=== PATIENT | female | born 1965 | race Caucasian/White ===

== ENCOUNTER → 2017-01-23 | Outpatient (CLI) | payer BC ==
--- NOTE | 2017-01-23 09:54 | MM ---
Reason for exam: screening (asymptomatic). Last mammogram was performed 1 year and 6 months ago. History: Patient had first child at age 31. Physical Findings: A clinical breast exam by your physician is recommended on an annual basis and results should be correlated with mammographic findings. MG Screening Mammo w CAD Bilateral CC and MLO view(s) were taken. Prior study comparison: July 27, 2015, bilateral MG screening mammo w CAD. May 07, 2012, bilateral digital screening mammo w/CAD. There are scattered fibroglandular densities. There is no discrete abnormality. No significant changes when compared with prior studies. ASSESSMENT: Negative, BI-RAD 1 RECOMMENDATION: Routine screening mammogram of both breasts in 1 year.
== END | disposition home or self-care (01) ==
LOC: RADMAMWWP 08:04
PROVIDERS: ATTEND Obstetrics & Gynecology
DX: Z12.31 Encounter for screening mammogram for malignant neoplasm of breast (principal)

== ENCOUNTER → 2017-03-04 | Outpatient (CLI) | payer BC ==
[2017-03-04 17:06] LABS: Basophils # (A) 0.1 k/uL (0-0.2); Basophils % (A) 1 %; CHCM 33.4; Eosinophils # (A) 0.4 k/uL (0-0.7); Eosinophils % (A) 3 %; HDW 2.36; HGB 13.9 gm/dL (11.4-16.0); Luc # (Auto) 0.21; Luc % (Auto) 2; Lymphocytes # (A) 2.6 k/uL (1.0-4.8); Lymphocytes % (A) 25 %; MCH 31.6 pg (25.0-35.0); MCHC 33.9 g/dL (31.0-37.0); MCV 93.4 fL (80.0-100.0); Mean Platelet Volume 7.8; Monocytes # (A) 0.6 k/uL (0-1.0); Monocytes % (A) 6 %; Neutrophils # (A) 6.5 k/uL (1.3-7.7); Neutrophils % (A) 63 %; RBC 4.39 m/uL (3.80-5.40); WBC 10.3 k/uL (3.8-10.6); WBC (Perox) 10.33
== END | disposition home or self-care (01) ==
LOC: LABPAT 15:33
PROVIDERS: ATTEND Obstetrics & Gynecology
DX: Z01.812 Encounter for preprocedural laboratory examination (principal); N84.0 Polyp of corpus uteri; N92.0 Excessive and frequent menstruation with regular cycle
CPT/HCPCS: 85025

== ENCOUNTER 2017-03-17 05:58 | Day surgery (SDC) | payer BC ==
[2017-03-12 13:58] VITALS: BMI 37.2
--- NOTE | 2017-03-16 15:46 | HP ---
This is a 51 -year-old white female who presented for her annual examination. She was noted to have an enlarged fibroid uterus and an ultrasound was performed. Sonogram revealed the presence of small fibroids, however, also suggested the presence of endometrial polyps. For this reason, we have elected to proceed with hysteroscopy, D&C and polypectomy. The patient did have a NovaSure ablation five years ago but continues to have monthly cycles. Review of systems is otherwise negative. Past medical history is essentially unremarkable. Past surgical history: Tubal ligation 2003, ear surgery 1994, jaw surgery in 1985, NovaSure ablation. ALLERGIES: INCLUDE PENICILLIN TO WHICH REPORTS SWELLING, SUDAFED TO WHICH SHE REPORTS A RASH. SURGICAL TAPE TO WHICH SHE REPORTS A LOCAL REACTION. FAMILY HISTORY: Significant for hyperlipidemia. SOCIAL HISTORY: The patient enjoys social alcohol. She has never been a tobacco smoker. 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 She is . Her husbands name is Marco. Current medications: Multivitamin daily. Reproductive history: The patient has had a tubal ligation, she has had two vaginal deliveries, unremarkable. On examination, this is a pleasant white female, she is 5 foot 3 inches, 217 pounds, BMI 38. HEENT: exam is negative. No thyromegaly. No cervical lymphadenopathy. Good range of motion in the neck. The breasts are bilaterally symmetric to inspection, no skin dimpling, nipple discharge or axillary adenopathy. The abdomen is moderately obese, no organosplenomegaly. No tenderness. No CVA tenderness. Extremities reveals no edema, good range of motion is noted. Chest is clear to auscultation in all villarreal anteriorly and posteriorly. Cardiac exam reveals regular rate and rhythm with no murmur, click or rub. On pelvic exam reveals external genitalia is well estrogenized, no unusual discharge. Cervix is multiparous, nontender, with no bleeding noted. Uterus is 12 to 14 weeks size, irregular in contour, small external fibroids noted. Position is midline. Adnexa are negative bilaterally. No masses or tenderness. Rectal exam reveals FIT negative stool. IMPRESSION: 12 to 14 week size fibroid uterus with endometrial polyps noted sonographically. PLAN: We will proceed with hysteroscopy, D&C at [facility]. All risks of uterine perforation, bleeding, infection, damage to bowel or bladder, cervix or uterus all reviewed. All questions answered. The ACOG pamphlet on this procedure have been given to the patient for her review. SHARON
[~2017-03-17 05:58] MED LIST: DEXAMETHASONE SOD PHOSPHATE 10 MG/ML 1 ML VIAL IV ONE; HYDROmorphone 1 MG/ML 1 ML SYRINGE IVP PRN; LACTATED RINGERS 1,000 ML IV SCH; LIDOCAINE 1% 20 ML VIAL (10MG/ML) FOR IV START INTRADERMA PRN; Pre Op ABX Message 1 EACH MISC MISCELLANE ONE
[2017-03-17] MEDS ORDERED: ONDANSETRON 4 MG/2 ML VIAL IVP ONE (07:03)
[2017-03-17] MEDS ORDERED: SCOPOLAMINE 1.5MG/72HR PATCH TRANSDERM ONE (07:03)
[2017-03-17] MEDS ORDERED: KETOROLAC 30 MG/ML 1 ML VIAL ONE (07:18)
[2017-03-17] MEDS ORDERED: PROPOFOL 10 MG/ML 20 ML VIAL IV ONE (07:18)
[2017-03-17] MEDS ORDERED: LIDOCAINE 1% INJ 10MG/ML (20 ML MDV) ONE (07:18)
[2017-03-17] MEDS ORDERED: fentaNYL (PF) 50 MCG/ML 2 ML AMP ONE (07:18)
[2017-03-17] MEDS ORDERED: MIDAZOLAM 2 MG/2 ML VIAL ONE (07:18)
--- NOTE | 2017-03-17 07:44 | P.OP ---
Date of Procedure: 03/17/17 Preoperative Diagnosis: Atrial polyps, fibroid uterus, polymenorrhea Postoperative Diagnosis: Pathology pending Procedure(s) Performed: Hysteroscopy, D&C, polypectomy Implants: Anesthesia: SHALAA Surgeon: Leslee Carrillo Estimated Blood Loss (ml): 25 IV fluids (ml): 500 Urine output (ml): 100 Pathology: other (Intrauterine curettings) Condition: stable Disposition: PACU Indications for Procedure: Operative Findings: Description of Procedure: Patient is brought to the operating suite where a general anesthetic is administered without difficulty. She's placed in the dorsal lithotomy position. The appropriate timeout is performed to assure proper patient and procedural identification. Urine hCG is negative. Antibiotics are not deemed necessary. The cervix, vagina, perineum and periurethral areas are all prepped and draped in usual sterile fashion. Examination under anesthesia reveals a enlarged fibroid uterus, approximately 12 weeks size, irregular in contour, adnexa negative bilaterally. Cervix is bulky and multiparous, there is a grade 2-3 uterine prolapse. Bladder is drained for 100 mL of clear yellow urine. The weighted speculum was placed into the vagina. The anterior lip of the cervix is grasped gently with a double-tooth tenaculum. Uterus sounds to a depth of 12 cm the anteverted position. The cervix was gently and systematically dilated using Hanks dilators. The hysteroscope was then placed and the cavity is distended using saline. In evaluating the cavity multiple small endometrial polyps are noted, along with the suggestion of submucosal fibroids. A medium sharp curette is used and the cavity is thoroughly and systematically curettaged for a moderate amount of tissue and polyps. This was sent to pathology for evaluation. Hemostasis is excellent. This double-tooth tenaculum was removed and the cervix is clean and dry. All sponge needle and enhancement counts are correct at the end of the procedure. Patient is brought back to the recovery room in very good condition with stable vital signs including pulse of 72, blood pressure 113/59. Toradol is given prior to leaving the operative suite to aid in analgesia. Patient will follow-up with me in the office in 2 weeks.
[2017-03-17 07:57] VITALS: TEMP 96.8
[2017-03-17 08:09] VITALS: RESP 18
[2017-03-17] MEDS ORDERED: LACTATED RINGERS 1,000 ML IV ONE (08:51)
[2017-03-17 08:53] VITALS: BP 118/75; PULSE 76
== END 2017-03-17 09:42 | disposition home or self-care (01) ==
LOC: OR 05:58
PROVIDERS: ATTEND Obstetrics & Gynecology
DX: N85.00 Endometrial hyperplasia, unspecified (principal); N81.2 Incomplete uterovaginal prolapse; N92.0 Excessive and frequent menstruation with regular cycle; D25.9 Leiomyoma of uterus, unspecified; N84.0 Polyp of corpus uteri; Z88.0 Allergy status to penicillin; Z88.8 Allergy status to other drugs, medicaments and biological substances; Z91.09 Other allergy status, other than to drugs and biological substances
CPT/HCPCS: 81025; 88305; 58558; J2250; J1100; J2405; J2001; J3010; J1885; J2704

== ENCOUNTER → 2018-10-29 | Outpatient (CLI) | payer BC ==
--- NOTE | 2018-11-01 10:19 | MM ---
Reason for exam: screening (asymptomatic). Last mammogram was performed 1 year and 9 months ago. History: Patient had first child at age 31. Physical Findings: A clinical breast exam by your physician is recommended on an annual basis and results should be correlated with mammographic findings. MG Screening Mammo w CAD Bilateral CC and MLO view(s) were taken. Prior study comparison: January 23, 2017, bilateral MG screening mammo w CAD. July 27, 2015, bilateral MG screening mammo w CAD. There are scattered fibroglandular densities. There is no discrete abnormality. No significant changes when compared with prior studies. ASSESSMENT: Negative, BI-RAD 1 RECOMMENDATION: Routine screening mammogram of both breasts in 1 year.
== END | disposition home or self-care (01) ==
LOC: RADMAMWWP 10:55
PROVIDERS: ATTEND Obstetrics & Gynecology
DX: Z12.31 Encounter for screening mammogram for malignant neoplasm of breast (principal)
CPT/HCPCS: 77067

== ENCOUNTER → 2018-11-06 | Outpatient (CLI) | payer BC ==
[2018-11-06 10:04] LABS: Basophils # (A) 0.1 k/uL (0-0.2); Basophils % (A) 1 %; Eosinophils # (A) 0.3 k/uL (0-0.7); Eosinophils % (A) 5 %; HCT 46.9 % (34.0-46.0); HGB 14.7 gm/dL (11.4-16.0); Hypochromasia Moderate; Lymphocytes # (A) 2.2 k/uL (1.0-4.8); Lymphocytes % (A) 35 %; MCH 31.2 pg (25.0-35.0); MCHC 31.3 g/dL (31.0-37.0); MCV 99.4 fL (80.0-100.0); Mean Platelet Volume 8.1; Monocytes # (A) 0.3 k/uL (0-1.0); Monocytes % (A) 5 %; Neutrophils # (A) 3.1 k/uL (1.3-7.7); Neutrophils % (A) 50 %; Platelet Count 232 k/uL (150-450); RBC 4.71 m/uL (3.80-5.40); RDW 12.9 % (11.5-15.5); WBC 6.3 k/uL (3.8-10.6)
== END | disposition home or self-care (01) ==
LOC: LABPAT 09:46
PROVIDERS: ATTEND Obstetrics & Gynecology
DX: Z01.812 Encounter for preprocedural laboratory examination (principal); N92.0 Excessive and frequent menstruation with regular cycle; N84.0 Polyp of corpus uteri
CPT/HCPCS: 36415; 85025

== ENCOUNTER 2018-11-16 07:17 | Day surgery (SDC) | payer BC ==
[2018-11-10 14:41] VITALS: BMI 36.6
--- NOTE | 2018-11-11 10:19 | HP ---
HISTORY AND PHYSICAL Surgery is scheduled for November 16 at the hospital. This is a 53-year-old white female, 2, para 2-0-0-2 who presents with a history of tubal ligation. The patient underwent a ultrasound for history of fibroid uterus. Several small fibroids were noted along with normal-appearing ovaries. However, the ultrasound suggests the presence of a 0.9 x 0.5 x 1.0 cm endometrial polyp. The patient has had a D and C in the past, along with the NovaSure ablation. REVIEW OF SYSTEMS: Review of systems is otherwise negative. PAST MEDICAL HISTORY: Past medical history is significant for previous endometrial polypectomy, fibroid uterus noted, history of ovarian cyst with resolution. PAST SURGICAL HISTORY: Hysteroscopy, polypectomy and D and C in 2017. Ear surgery for benign indications. Endometrial biopsies in the past. Tubal ligation 2003. Jaw surgery per Dr. Malin in 1985. CURRENT MEDICATIONS: 1. Probiotic daily. 2. Multivitamin daily. 3. Calcium daily. ALLERGIES: Allergies include PENICILLIN to which reports swelling, SUDAFED to which she reports a rash, and SURGICAL TAPE to which reports a local reaction. FAMILY HISTORY: Family history is significant for hypercholesterolemia. REPRODUCTIVE HISTORY: Normal spontaneous vaginal deliveries x2. SOCIAL HISTORY: The patient is . She has never been a smoker. She admits to social alcohol use. PHYSICAL EXAMINATION: On exam, she is 5 feet 3 inches, 224 pounds, BMI is 40. Initial blood pressure 160/72 while seated, repeat 140/70. HEENT exam reveals no thyromegaly, no obvious cervical lymphadenopathy, good dentition. Chest is clear to auscultation in all villarreal anteriorly and posteriorly. Cardiac exam reveals regular rate and rhythm with no murmur, click, or rub. Breasts are bilaterally symmetric to inspection with no skin changes, discharge, deformities, lesions or masses. Abdominal exam reveals an obese abdomen with no obvious organosplenomegaly. No herniorrhaphy. Active bowel sounds. Extremities reveal no edema, good peripheral pulses. External genitalia are normal for age with no discharge or inflammatory lesions. No cystocele or rectocele is noted. The cervix is tender, closed, long with no bleeding. Adnexa are negative bilaterally, no masses or tenderness. Uterus is small, midline, anteverted, anteflexed, mobile. Rectal exam reveals FIT negative stool, good tone. IMPRESSION: Heavy vaginal bleeding with evidence of endometrial polyp noted sonographically. Requesting polypectomy. PLAN: We will proceed with hysteroscopy, polypectomy, and d and C. Patient is aware of the risks of uterine perforation, bleeding, infection, damage to cervix, uterus, bowels or bladder as well as ureters. She is aware of the risks of anesthesia, aspiration, nerve damage, or even . Questions have been answered and I believe patient understands our discussion with no reservation or other question. MMODL / IJN: [id number] /
[~2018-11-16 07:17] MED LIST changes: -HYDROmorphone 1 MG/ML 1 ML SYRINGE IVP PRN; -LIDOCAINE 1% 20 ML VIAL (10MG/ML) FOR IV START INTRADERMA PRN; +ONDANSETRON 4 MG/2 ML VIAL IVP ONE; +SCOPOLAMINE 1.5MG/72HR PATCH TRANSDERM ONE; +fentaNYL (PF) 50 MCG/ML 2 ML AMP IV PRN
[2018-11-16] MEDS ORDERED: LIDOCAINE 1% 20 ML VIAL (10MG/ML) FOR IV START INTRADERMA ONE (07:56)
[2018-11-16] MEDS ORDERED: ONDANSETRON 4 MG/2 ML VIAL IVP ONE (08:00)
[2018-11-16] MEDS: MIDAZOLAM (PF) 2 MG/2 ML VIAL IV PRN ×2 (08:00→08:08)
[2018-11-16] MEDS ORDERED: SUCCINYLCHOLINE CHLORIDE 100 MG/5 ML SYR IV ONE (08:12)
[2018-11-16] MEDS ORDERED: LIDOCAINE 1% INJ 10MG/ML (20 ML MDV) ONE (08:12)
[2018-11-16] MEDS ORDERED: fentaNYL (PF) 50 MCG/ML 2 ML AMP ONE (08:12)
[2018-11-16] MEDS ORDERED: PROPOFOL 10 MG/ML 20 ML VIAL IV ONE (08:12)
[2018-11-16] MEDS ORDERED: KETOROLAC 30 MG/ML 1 ML VIAL ONE (08:12)
--- NOTE | 2018-11-16 08:38 | P.OP ---
Date of Procedure: 11/16/18 Preoperative Diagnosis: Menorrhagia, endometrial polyp Postoperative Diagnosis: Same Procedure(s) Performed: Hysteroscopy, polypectomy, D&C of the uterine cavity Anesthesia: MAXIMO Surgeon: Leslee Carrillo Estimated Blood Loss (ml): 20 IV fluids (ml): 300 Urine output (ml): 50 Pathology: other (Endometrial curettings) Condition: stable Disposition: PACU Operative Findings: Small intrauterine polyps. Otherwise negative cavity. Grade 2 uterine prolapse. Description of Procedure: Patient is brought to the Apri and suite where a general anesthetic is administered without difficulty. She's placed in the dorsal lithotomy position. The cervix, vagina and perineal bodies are all prepped and draped in the usual sterile fashion. The appropriate timeout is performed to assure proper patient and procedural identification. Urine hCG is negative. Antibiotics are not deemed necessary. Examination under anesthesia reveals a large cervix, grade 2 uterine prolapse. Uterine cavity slightly enlarged and bulky. Adnexa negative. Bladder is drained for 50 mL of clear yellow urine. Weighted speculum was placed into the vagina. The anterior lip of the cervix is grasped with a double-tooth tenaculum. Uterus sounds to a depth of 9 cm in the anteverted position. Cervix is gently and systematically dilated using Hanks dilators. Hysteroscope was placed and fluid is infused. The cavity is distended with saline. There are several small polyps noted in the upper uterine fundus. No other septa or defects are noted. Hysteroscope was removed. A small sharp curette is used and the cavity is thoroughly curettaged for a moderate amount of tissue including polyps. The polyp forcep is then introduced and any residual tissue is removed. Hysteroscope was once again placed and the cavity is noted to be clear. Instrumentation is removed from the vagina. All sponge needle and enhancement counts are correct. Toradol is given prior to leaving the operative suite. Patient is brought to the recovery room in stable condition with blood pressure 116/62, pulse 76, 98% O2 saturation. She will follow-up with the office with me in 2 weeks.
[2018-11-16 08:53] VITALS: TEMP 97.9
[2018-11-16 09:19] VITALS: RESP 16
[2018-11-16 10:26] VITALS: BP 157/85; PULSE 78
== END 2018-11-16 10:40 | disposition home or self-care (01) ==
LOC: OR 07:17
PROVIDERS: ATTEND Obstetrics & Gynecology
DX: N84.0 Polyp of corpus uteri (principal); N81.4 Uterovaginal prolapse, unspecified; E66.9 Obesity, unspecified; Z88.0 Allergy status to penicillin; Z88.5 Allergy status to narcotic agent; Z88.8 Allergy status to other drugs, medicaments and biological substances; Z68.38 Body mass index [BMI] 38.0-38.9, adult; Z98.51 Tubal ligation status
CPT/HCPCS: 81025; 88305; 58558; J1100; J2405; J2001; J3010; J1885; J0330; J2704; J2250

== ENCOUNTER 2020-07-30 12:10 | Emergency (ER) | payer BC ==
[2020-07-30 12:24] VITALS: RESP 18; TEMP 98.2
[2020-07-30] MEDS ORDERED: ACETAMINOPHEN TAB 325 MG TAB PO STA (12:56)
--- NOTE | 2020-07-30 13:52 | XR ---
EXAMINATION TYPE: XR knee complete LT DATE OF EXAM: 07/30/2020 CLINICAL HISTORY: Pain. TECHNIQUE: Three views of the left knee are obtained. COMPARISON: None. FINDINGS: There is no acute fracture/dislocation evident in left knee. Mild to moderate tricompartme nt joint space loss and spurring greatest medial tibiofemoral and patellofemoral compartments. Increa sed density suprapatellar bursa consistent with moderate joint effusion. IMPRESSION: As above.
--- NOTE | 2020-07-30 14:05 | US ---
EXAMINATION TYPE: US venous doppler duplex LE RT DATE OF EXAM: 07/30/2020 1:58 PM COMPARISON: NONE CLINICAL HISTORY: pain. Right knee pain SIDE PERFORMED: Right TECHNIQUE: The lower extremity deep venous system is examined utilizing real time linear array sonog elisha with graded compression, doppler sonography and color-flow sonography. VESSELS IMAGED: Common Femoral Vein Deep Femoral Vein Greater Saphenous Vein * Femoral Vein Popliteal Vein Small Saphenous Vein * Proximal Calf Veins (* superficial vessels) Right Leg: Negative for DVT IMPRESSION: Grayscale, color doppler, spectral doppler imaging performed of the deep veins of the lo wer extremities. There is normal flow, compressibility, vascular waveforms.
[2020-07-30 14:29] VITALS: BP 172/94; PULSE 80
--- NOTE | 2020-07-30 14:51 | ED ---
General Adult HPI - General Chief complaint: Extremity Problem,Nontraumatic Stated complaint: rt knee pain Time Seen by Provider: 07/30/20 12:29 Source: patient, RN notes reviewed, old records reviewed Mode of arrival: wheelchair Limitations: no limitations - History of Present Illness Initial comments: 54-year-old female patient to ED for evaluation of left knee pain. Patient reports that this pain began about a month ago and she believes that she twisted it. She reports that she has had some pain in her knee since and she is having some difficulty with ambulation.Patient believes that she also twisted her knee earlier today at work. The pain is mostly posterior. Systemic: Pt denies fatigue, fever/chills, rash. Pt denies weakness, night sweats, weight loss. Neuro: Pt denies headache, visual disturbances, syncope or pre-syncope. HEENT: Pt denies ocular discharge or irritation, otalgia, rhinorrhea, pharyngitis or notable lymphadenopathy. Cardiopulmonary: Pt denies chest pain, SOB, heart palpitations, dyspnea on exertion. Abdominal/GI: Pt denies abdominal pain, n/v/d. : Pt denies dysuria, burning w/ urination, frequency/urgency. Denies new onset urinary or bowel incontinence. Neuro: Pt denies new onset weakness, paresthesias. - Related Data Home Medications Medication Instructions Recorded Confirmed Cholecalciferol [Vitamin D3] 1,000 unit PO DAILY 11/10/18 11/10/18 L.acidoph,Paracasei, B.lactis 1 each PO DAILY 11/10/18 11/10/18 [Probiotic] Multivitamin [Multivitamins Adult 1 each PO DAILY 11/10/18 11/10/18 Gummies] Allergies Allergy/AdvReac Type Severity Reaction Status Date / Time Penicillins Allergy Anaphylaxis Verified 07/30/20 12:24 codeine AdvReac Nausea Verified 07/30/20 12:24 pseudoephedrine AdvReac Rash/Hives Verified 07/30/20 12:24 [facility] Review of Systems ROS Statement: Those systems with pertinent positive or pertinent negative responses have been documented in the HPI. ROS Other: All systems not noted in ROS Statement are negative. Past Medical History Past Medical History: No Reported History History of Any Multi-Drug Resistant Organisms: None Reported Past Surgical History: Uterine Ablation Past Psychological History: No Psychological Hx Reported Smoking Status: Former smoker Past Alcohol Use History: Occasional Past Drug Use History: None Reported General Exam - General Exam Comments Initial Comments: Constitutional: NAD, AOX3, Pt has pleasant affect. HEENT: NC/AT, trachea midline, neck supple, no lymphadenopathy. External ears appear normal, without discharge. Mucous membranes moist. Eyes PERRLA, EOM intact. There is no scleral icterus. No pallor noted. Cardiopulmonary: RRR, no murmurs, rubs or gallops, no JVD noted. Lungs CTAB in anterior and posterior villarreal. No peripheral edema. Abdominal exam: Abdomen soft and non-distended. Abdomen non-tender to palpation in all 4 quadrants. Bowel sounds active in LLQ. No hepatosplenomegaly. No ecchymosis Neuro: CN II-XII grossly intact. No nuchal rigidity. No raccon eyes, no snyder sign, no hemotympanum. No cervical spinal tenderness. MSK: No posterior calf tenderness bilaterally, homans sign negative bilaterally. Posterior tibialis and radial pulse +2 bilaterally. Sensation intact in upper and lower extremities. Full active ROM in upper and lower extremities, 5/5 stregnth. Knee is nontender. Range of motion does reproduce discomfort in the right knee and ambulation. Limitations: no limitations Course Vital Signs 07/30/20 07/30/20 12:21 14:28 Temperature 98.2 F Pulse Rate 94 80 Respiratory 18 18 Rate Blood Pressure 137/82 172/94 O2 Sat by Pulse 98 98 Oximetry Medical Decision Making - Medical Decision Making 54-year-old female patient to ED for left knee pain. Patient reports that she did have a minor twisting injury about a month ago and has pain since. She states that the pain is getting worse. Ultrasound is negative for DVT. Plain film of the knee displayed mild to moderate tricompartmental joint space loss and spurring. Moderate joint effusion. Patient will be placed in knee immobilizer and will use crutches will discharge the patient with orthopedic follow-up and return precautions. Case discussed with Dr. Roger. Disposition Clinical Impression: Knee sprain Disposition: HOME SELF-CARE Condition: Stable Instructions (If sedation given, give patient instructions): Knee Sprain (ED) Additional Instructions: Wear knee immobilizer as much as possible. Use crutches do not bear weight on left lower extremity. Follow up with orthopedic consult tomorrow. Follow-up with PCP in 1-2 days. Return to ED if any worsening symptoms. Is patient prescribed a controlled substance at d/c from ED?: No Referrals: Nabil Stuart MD [Primary Care Provider] - 1-2 days Swapnil Barrera DO [Doctor of Osteopathic Medicine] - 1-2 days
== END 2020-07-30 14:59 | disposition home or self-care (01) ==
LOC: EC 12:10
DX: S83.90XA Sprain of unspecified site of unspecified knee, initial encounter (principal); M25.462 Effusion, left knee; Z88.0 Allergy status to penicillin; Z88.5 Allergy status to narcotic agent; Z88.8 Allergy status to other drugs, medicaments and biological substances; Z87.891 Personal history of nicotine dependence; X50.1XXA Overexertion from prolonged static or awkward postures, initial encounter
CPT/HCPCS: 99284

== ENCOUNTER → 2020-10-05 | Outpatient (CLI) | payer BC ==
--- NOTE | 2020-10-09 13:25 | MM ---
Reason for exam: screening (asymptomatic). Last mammogram was performed 1 year and 11 months ago. History: Patient had first child at age 31. Physical Findings: A clinical breast exam by your physician is recommended on an annual basis and results should be correlated with mammographic findings. MG Screening Mammo w CAD Bilateral CC and MLO view(s) were taken. Prior study comparison: October 29, 2018, bilateral MG screening mammo w CAD. January 23, 2017, bilateral MG screening mammo w CAD. There are scattered fibroglandular densities. Superior left MLO asymmetric density is unchanged. No significant changes when compared with prior studies. ASSESSMENT: Negative, BI-RAD 1 RECOMMENDATION: Routine screening mammogram of both breasts in 1 year.
== END | disposition home or self-care (01) ==
LOC: RADMAMWWP 11:23
PROVIDERS: ATTEND Obstetrics & Gynecology
DX: Z12.31 Encounter for screening mammogram for malignant neoplasm of breast (principal)
CPT/HCPCS: 77067

== ENCOUNTER 2021-04-23 09:01 | Day surgery (SDC) | payer BC ==
[2021-04-19 15:24] VITALS: BMI 37.8
[~2021-04-23 09:01] MED LIST changes: -DEXAMETHASONE SOD PHOSPHATE 10 MG/ML 1 ML VIAL IV ONE; -ONDANSETRON 4 MG/2 ML VIAL IVP ONE; -Pre Op ABX Message 1 EACH MISC MISCELLANE ONE; -SCOPOLAMINE 1.5MG/72HR PATCH TRANSDERM ONE; -fentaNYL (PF) 50 MCG/ML 2 ML AMP IV PRN
[2021-04-23 09:24] VITALS: RESP 16; TEMP 97.9
[2021-04-23] MEDS ORDERED: PROPOFOL 10 MG/ML 20 ML VIAL IV ONE (09:47)
--- NOTE | 2021-04-23 09:54 | P.GSHP ---
History of Present Illness H&P Date: 04/23/21 Chief Complaint: Colon cancer screening Patient or today for colonoscopy. Patient with family history of colon polyps. Her last colonoscopy 20 years ago she believes was normal. No bowel complaints. Past Medical History Past Medical History: No Reported History History of Any Multi-Drug Resistant Organisms: None Reported Past Surgical History: Uterine Ablation Additional Past Surgical History / Comment(s): Removal of Uterine Polyps. Past Anesthesia/Blood Transfusion Reactions: No Reported Reaction Smoking Status: Never smoker - Past Family History Mother Family Medical History: No Reported History Father Family Medical History: Cancer Additional Family Medical History / Comment(s): Prostate Medications and Allergies Home Medications Medication Instructions Recorded Confirmed Type Cholecalciferol [Vitamin D3] 1,000 unit PO DAILY 11/10/18 04/19/21 History L.acidoph,Paracasei, B.lactis 1 each PO DAILY 11/10/18 04/19/21 History [Probiotic] Multivitamin [Multivitamins Adult 1 each PO DAILY 11/10/18 04/19/21 History Gummies] Allergies Allergy/AdvReac Type Severity Reaction Status Date / Time Penicillins Allergy Anaphylaxis Verified 04/23/21 09:20 codeine AdvReac Nausea Verified 04/23/21 09:20 pseudoephedrine AdvReac Rash/Hives Verified 04/23/21 09:20 [From [facility]] Surgical - Exam Vital Signs Temp Pulse Resp BP Pulse Ox 97.9 F 83 16 154/88 96 04/23/21 09:22 04/23/21 09:22 04/23/21 09:22 04/23/21 09:22 04/23/21 09:22 Physical exam: General: Well-developed, well-nourished HEENT: Normocephalic, sclerae nonicteric Abdomen: Nontender, nondistended Extremities: No edema Neuro: Alert and oriented Assessment and Plan (1) Colon cancer screening Narrative/Plan: Will proceed with colonoscopy at this time Current Visit: Yes Status: Acute Code(s): Z12.11 - ENCOUNTER FOR SCREENING FOR MALIGNANT NEOPLASM OF COLON SNOMED Code(s): 406761801
--- NOTE | 2021-04-23 10:09 | P.PCN ---
Date of Procedure: 04/23/21 Procedure(s) Performed: PREOPERATIVE DIAGNOSIS: Colon cancer screening POSTOPERATIVE DIAGNOSIS: Sigmoid colon polyp 2, rectal polyp PROCEDURE: Colonoscopy with snare polypectomy ANESTHESIA: MAC SURGEON: Scooter Cano M.D. SPECIMENS: Colon polyps ENDOSCOPIC PROCEDURE: The patient was placed on the endoscopy table in the left decubitus position. The Olympus colonoscope was inserted into the anus and passed under direct visualization to the base of the cecum. The appendiceal orifice was visualized. From that point the scope was slowly withdrawn inspecting all surfaces carefully. There were no neoplastic inflammatory or polypoid lesions throughout the cecum, ascending, transverse, and descending colon. In the sigmoid colon there were 2 polyps one proximal and one distal. Both removed using the snare with cautery technique. In the rectum a 1 center polyp was removed using the snare with cautery technique at 15 cm. The remainder of the rectum appeared normal. There is no visible diverticulosis. Digital rectal examination was normal. The patient was taken to the recovery room in stable condition per anesthesia guidelines. RECOMMENDATIONS: Await biopsy results. Follow-up colonoscopy 3-5 years.
[2021-04-23 10:27] VITALS: BP 146/92; PULSE 77
== END 2021-04-23 10:57 | disposition home or self-care (01) ==
LOC: ORWHC2ENDO 09:01
PROVIDERS: ATTEND Surgery
DX: Z12.11 Encounter for screening for malignant neoplasm of colon (principal); D12.5 Benign neoplasm of sigmoid colon; K62.1 Rectal polyp; Z88.0 Allergy status to penicillin; Z88.5 Allergy status to narcotic agent; Z87.42 Personal history of other diseases of the female genital tract
CPT/HCPCS: 45385; 88305; J2704

== ENCOUNTER → 2021-12-06 | Outpatient (CLI) | payer BC ==
--- NOTE | 2021-12-09 10:12 | MM ---
Reason for exam: screening (asymptomatic). Last mammogram was performed 1 year and 2 months ago. History: Patient had first child at age 31. Physical Findings: A clinical breast exam by your physician is recommended on an annual basis and results should be correlated with mammographic findings. MG Screening Mammo w CAD Bilateral CC and MLO view(s) were taken. Prior study comparison: October 05, 2020, bilateral MG screening mammo w CAD. October 29, 2018, bilateral MG screening mammo w CAD. The breast tissue is heterogeneously dense. This may lower the sensitivity of mammography. There is no discrete abnormality. No significant changes when compared with prior studies. ASSESSMENT: Negative, BI-RAD 1 RECOMMENDATION: Routine screening mammogram of both breasts in 1 year.
== END | disposition home or self-care (01) ==
LOC: RADMAMWWP 07:28
PROVIDERS: ATTEND Family Medicine
DX: Z12.31 Encounter for screening mammogram for malignant neoplasm of breast (principal)
CPT/HCPCS: 77067

== ENCOUNTER → 2022-09-05 | Outpatient (CLI) | payer BC | END | disposition home or self-care (01) | LOC: RADXRMAIN 11:39 | PROVIDERS: ATTEND Family Medicine | DX: Z53.9 Procedure and treatment not carried out, unspecified reason (principal) ==

== ENCOUNTER → 2022-11-07 | Outpatient (CLI) | payer BC ==
--- NOTE | 2022-11-07 10:29 | US ---
EXAMINATION TYPE: US thyroid st tissue head/neck DATE OF EXAM: 11/07/2022 COMPARISON: NONE CLINICAL HISTORY: E04.1 NONTOXIC SINGLE THYROID NODULE. Lump GLAND SIZE: Right Lobe: 4.2 x 1.2 x 1.9 cm Overall Parenchyma: homogenous Left Lobe: 3.8 x 1.4 x 1.4 cm Overall Parenchyma: homogeneous Isthmus Thickness: .3 cm NODULES RIGHT: # of nodules measured on right: 0 LEFT: # of nodules measured on left: 0 ISTHMUS: # of nodules measured in the isthmus: 0 Bilateral neck scanned, no evidence of lymphadenopathy. IMPRESSION: Normal appearing thyroid gland without discrete nodule.
== END | disposition home or self-care (01) ==
LOC: RADUSWWP 10:05
PROVIDERS: ATTEND Family Medicine
DX: E04.1 Nontoxic single thyroid nodule (principal)
CPT/HCPCS: 76536

== ENCOUNTER → 2022-11-21 | Outpatient (CLI) | payer BC ==
--- NOTE | 2022-11-21 11:05 | CT ---
EXAMINATION TYPE: CT chest wo con DATE OF EXAM: 11/21/2022 COMPARISON: None HISTORY: Abnormal prominence of clavicle CT DLP: 261 mGycm. Automated Exposure Control for Dose Reduction was Utilized. TECHNIQUE: CT scan of the clavicle performed without IV contrast. FINDINGS: Clavicles appear symmetric in size. There is a tiny spur along the medial and upper margin of the lef t clavicle. No definite soft tissue mass is seen. Lungs are clear. Thyroid symmetric. Remaining structures appear intact. IMPRESSION: 1. Small spurs are seen along the medial margin of the left clavicle. Clinical ventricular size is sy mmetric. No definite soft tissue mass.
== END | disposition home or self-care (01) ==
LOC: RADCTMAIN 09:43
PROVIDERS: ATTEND Family Medicine
DX: M25.712 Osteophyte, left shoulder (principal); M95.8 Other specified acquired deformities of musculoskeletal system
CPT/HCPCS: 71250

== ENCOUNTER → 2023-09-25 | Outpatient (CLI) | payer BC ==
--- NOTE | 2023-09-28 09:54 | MM ---
Reason for Exam: Screening (asymptomatic). Last mammogram was performed 1 year(s) and 10 month(s) ago. Patient History: Menarche at age 11. First Full-Term at age 31. Late child-bearing (after 30). Postmenopausal. Risk Values: Eloisa 5 year model risk: 1.9%. NCI Lifetime model risk: 11.7%. Prior Study Comparison: 07/27/2015 Bilateral Screening Mammogram, [facility]. 01/23/2017 Bilateral Screening Mammogram, [facility]. 10/29/2018 Bilateral Screening Mammogram, [facility]. 10/05/2020 Bilateral Screening Mammogram, [facility]. 12/06/2021 Bilateral Screening Mammogram, [facility]. Tissue Density: There are scattered fibroglandular densities. Findings: Analyzed By CAD. There is no suspicious group of microcalcifications or new suspicious mass in either breast. Stable 2 mm nodule along the inner margin of the right breast unchanged from multiple prior exams. Overall Assessment: Benign, BI-RAD 2 Management: Screening Mammogram of both breasts in 1 year. . Patient should continue monthly self-breast exams. A clinical breast exam by your physician is recommended on an annual basis. This exam should not preclude additional follow-up of suspicious palpable abnormalities. Note on Eloisa scores and lifetime risk: 1. A Eloisa score greater than 3% is considered moderate risk. If this is the case, consider specialist referral to assess eligibility for a risk reducing agent. 2. If overall lifetime risk for the development of breast cancer is 20% or higher, the patient may qualify for future screening with alternating mammogram and breast MRI. Electronically signed and approved by: Jeb Torres M.D. Radiologis
== END | disposition home or self-care (01) ==
LOC: RADMAMWWP 10:59
PROVIDERS: ATTEND Family Medicine
DX: Z12.31 Encounter for screening mammogram for malignant neoplasm of breast (principal); Z78.0 Asymptomatic menopausal state
CPT/HCPCS: 77063; 77067

== ENCOUNTER → 2024-11-18 | Outpatient (CLI) | payer BC ==
--- NOTE | 2024-11-18 09:22 | MM ---
Reason for Exam: Screening (asymptomatic). Last mammogram was performed 1 year(s) and 1 month(s) ago. Patient History: Menarche at age 11. First Full-Term at age 31. Late child-bearing (after 30). Postmenopausal. Risk Values: Eloisa 5 year model risk: 2.1%. NCI Lifetime model risk: 11.2%. Prior Study Comparison: 10/05/2020 Bilateral Screening Mammogram, [facility]. 12/06/2021 Bilateral Screening Mammogram, [facility]. 09/25/2023 Bilateral MG 3D screening mammo w/cad, [facility]. Tissue Density: There are scattered areas of fibroglandular density. Findings: Analyzed By CAD. There is no suspicious group of microcalcifications or new suspicious mass in either breast. Overall Assessment: Benign, BI-RAD 2 Management: Screening Mammogram of both breasts in 1 year. . Patient should continue monthly self-breast exams. A clinical breast exam by your physician is recommended on an annual basis. This exam should not preclude additional follow-up of suspicious palpable abnormalities. Note on Eloisa scores and lifetime risk: 1. A Eloisa score greater than 3% is considered moderate risk. If this is the case, consider specialist referral to assess eligibility for a risk reducing agent. 2. If overall lifetime risk for the development of breast cancer is 20% or higher, the patient may qualify for future screening with alternating mammogram and breast MRI. [facility], , 11/18/2024 9:20 AM. Electronically signed and approved by: Jeb Torres M.D. Radiologis
== END | disposition home or self-care (01) ==
LOC: RADMAMWWP 08:39
PROVIDERS: ATTEND Family Medicine
DX: Z12.31 Encounter for screening mammogram for malignant neoplasm of breast (principal); R92.323 Mammographic fibroglandular density, bilateral breasts; Z78.0 Asymptomatic menopausal state
CPT/HCPCS: 77063; 77067